=== PATIENT | female | born 1940 | race Caucasian/White ===

== ENCOUNTER 2022-02-08 10:35 | Emergency (ER) | payer OTHER ==
--- NOTE | 2022-02-08 12:32 | RAD REPORT ---
EXAM DESCRIPTION: RAD - Foot Left 3 View - 02/08/2022 12:17 pm CLINICAL HISTORY: PAIN COMPARISON: No comparisons FINDINGS: Joint space narrowing and marginal spurring noted at the first MTP joint. There is a sligh t valgus angulation present. Postsurgical wire is present in the mid shaft first proximal phalanx. Th e IP joints of the foot show mild joint space narrowing. There is no erosive or destructive process a t any of the IP joints. Fracture is evident at the fourth metatarsal shaft- head junction. No distraction or angulation defor mity. There is questionable fracture involving the distal shaft of the fifth metatarsal. There are ch anges in the distal fifth metatarsal that may indicate the remote fracture as well. Correlation is ne eded with localized symptoms to the distal fourth and fifth metatarsals. No measurable distraction or angulation at the fracture site. The second-fifth MTP joints show no suspicious findings. Moderate-sized plantar spur is present. No air or foreign body in the soft tissues. IMPRESSION: Fracture of the distal fourth and fifth metatarsals evident as detailed. Correlation is needed with localizing symptoms.
--- NOTE | 2022-02-08 12:34 | RAD REPORT ---
EXAM DESCRIPTION: RAD - Ankle Left 3 View - 02/08/2022 12:25 pm CLINICAL HISTORY: PAIN COMPARISON: No comparisons FINDINGS: No gross fracture deformity is seen. There is a thin crescent shaped bone focus at the dis eugene tip of the fibula. A very minimal avulsion is possible. There is significant overlying soft tissu e swelling in this region. Anterior soft tissue swelling is also present. No other area of possible f racture seen. Moderate-sized plantar spur present. No joint effusion seen. Slight narrowing of the tibiotalar joint space noted. No air or foreign body in the soft tissues. IMPRESSION: Significant anterior and lateral left ankle soft tissue swelling present. No gross fracture deformity is seen. Small crescent shaped bone density at the tip of the fibula coul d be very minimal avulsion or possibly the sequela of old trauma. Punctate avulsion at the tip of the fibula would not likely alter medical management.
[2022-02-08 13:11] LABS: SARS-COV-2 RT PCR NEGATIVE (NEGATIVE)
--- NOTE | 2022-02-08 13:16 | ER ---
Nurse's Notes [facility] Name: Lilly Cortés Age: 81 yrs Sex: Female : 1940 Arrival Date: 02/08/2022 Time: 10:38 Bed IW2 Private MD: Diagnosis: Nondisplaced fracture of fifth metatarsal bone, left foot;Nondisplaced fracture of fourth metatarsal bone, left foot, initial encounter for closed fracture;Sprain of ankle Presentation: 02/08 11:21 Chief complaint: Patient states: twisted left ankle on stairs yesterday; swelling and jh5 discoloration worsening. Coronavirus screen: Vaccine status: Patient reports receiving the 2nd dose of the covid vaccine. Client denies travel out of the [place] in the last 14 days. Ebola Screen: Patient negative for fever greater than or equal to 101.5 degrees Fahrenheit, and additional compatible Ebola Virus Disease symptoms Patient denies exposure to infectious person. Patient denies travel to an Ebola-affected area in the 21 days before illness onset. Initial Sepsis Screen: Does the patient meet any 2 criteria? No. Patient's initial sepsis screen is negative. Does the patient have a suspected source of infection? No. Patient's initial sepsis screen is negative. Risk Assessment: Do you want to hurt yourself or someone else? Patient reports no desire to harm self or others. 11:21 Method Of Arrival: Wheelchair [facility] 11:21 Acuity: JAY 4 5 Triage Assessment: 11:23 General: Appears in no apparent distress. comfortable, well groomed, well developed, [facility] Behavior is calm, cooperative, appropriate for age. Pain: Complains of pain in left foot. Historical: - Allergies: 11:23 PENICILLINS; [facility] - Immunization history:: Adult Immunizations up to date. - Social history:: Smoking status: Patient denies any tobacco usage or history of. Vital Signs: 11:21 BP 139 / 74; Pulse 100; Resp 16; Temp 98.6; Pulse Ox 94% ; Weight 74.39 kg; Height 5 [facility] ft. 4 in. (162.56 cm); Pain 6/10; 11:21 Body Mass Index 28.15 (74.39 kg, 162.56 cm) [facility] ED Course: 10:38 Patient arrived in ED. mr 10:42 Shani Pablo F[facility]-C [facility] kb 10:42 Liam Valdez DO is Attending Physician. kb 11:23 Triage completed. jh5 11:23 Arm band placed on right wrist. jh5 12:19 Ankle Left 3 View XRAY In Process Unspecified. EDMS 12:19 Foot Left 3 View XRAY In Process Unspecified. EDMS 13:22 No provider procedures requiring assistance completed. Patient did not have IV access ss during this emergency room visit. MEDIUM walking boot to L ankle. Administered Medications: No medications were administered Outcome: 13:16 Discharge ordered by MD. kb 13:34 Patient left the ED. [facility] Signatures: Dispatcher [employer] EDMS Shani Pablo FNP-C FNP-Adriano CherryaChastity Sandy Bardales, RN RN Tamia Duff RN RN [facility]
--- NOTE | 2022-02-08 13:16 | EDPHYS ---
Physician Documentation [facility] Name: Lilly Cortés Age: 81 yrs Sex: Female : 1940 Arrival Date: 02/08/2022 Time: 10:38 Bed IW2 Private MD: ED Physician Liam Valdez HPI: 02/08 20:19 This 81 yrs old Female presents to ER via Wheelchair with complaints of Fall Injury, kb Ankle Injury. 20:19 Details of fall: The patient fell from an upright position. Onset: The symptoms/episode kb began/occurred yesterday. Associated injuries: The patient sustained left lateral ankle, ecchymosis, painful injury, swelling, dorsum of left foot, ecchymosis. Severity of symptoms: At their worst the symptoms were moderate, in the emergency department the symptoms are unchanged. The patient has not experienced similar symptoms in the past. The patient has not recently seen a physician. Pt reports she twisted her ankle when going down a step yesterday. c/o pain to left ankle and foot. Historical: - Allergies: 11:23 PENICILLINS; jh5 - Immunization history:: Adult Immunizations up to date. - Social history:: Smoking status: Patient denies any tobacco usage or history of. ROS: 18:31 Constitutional: Negative for fever, chills, and weight loss. kb 18:31 MS/extremity: Positive for ecchymosis, pain, swelling, tenderness, of the left lateral ankle and left foot. 18:31 All other systems are negative. Exam: 18:31 Constitutional: This is a well developed, well nourished patient who is awake, alert, kb and in no acute distress. Head/Face: Normocephalic, atraumatic. ENT: Moist Mucous membranes Cardiovascular: Regular rate and rhythm with a normal S1 and S2. No gallops, murmurs, or rubs. No pulse deficits. Respiratory: Respirations even and unlabored. No increased work of breathing. Talking in full sentences Skin: Warm, dry with normal turgor. Normal color. Neuro: Awake and alert, GCS 15, oriented to person, place, time, and situation. Moves all extremities. Normal gait. 18:31 Musculoskeletal/extremity: Extremities: grossly normal except: noted in the left lateral ankle and left foot: ecchymosis, pain, swelling, tenderness, ROM: limited active range of motion due to pain, in the left foot and left lateral ankle, Circulation is intact in all extremities. Sensation intact. Weight bearing: can bear weight with assistance only. Vital Signs: 11:21 BP 139 / 74; Pulse 100; Resp 16; Temp 98.6; Pulse Ox 94% ; Weight 74.39 kg; Height 5 jh5 ft. 4 in. (162.56 cm); Pain 6/10; 11:21 Body Mass Index 28.15 (74.39 kg, 162.56 cm) jh5 MDM: 11:16 Patient medically screened. kb 13:13 Data reviewed: vital signs, nurses notes. Data interpreted: Pulse oximetry: on room air kb is 95 %. Interpretation: normal. Counseling: I had a detailed discussion with the patient and/or guardian regarding: the historical points, exam findings, and any diagnostic results supporting the discharge/admit diagnosis, lab results, radiology results, the need for outpatient follow up, a orthopedic surgeon, to return to the emergency department if symptoms worsen or persist or if there are any questions or concerns that arise at home. 02/08 11:17 Order name: COVID-19/FLU A+B; Complete Time: 13:13 kb 02/08 11:17 Order name: Ankle Left 3 View XRAY; Complete Time: 12:35 kb 02/08 11:17 Order name: Foot Left 3 View XRAY; Complete Time: 12:35 kb 02/08 12:36 Order name: Walking boot; Complete Time: 13:09 kb Administered Medications: No medications were administered Disposition: 15:43 Co-signature as Attending Physician, Liam WOLFE was immediately available onsite ms3 in the emergency department for consultation in the care of the patient. Disposition Summary: 02/08/22 13:16 Discharge Ordered Location: Home kb Condition: Stable kb Diagnosis - Nondisplaced fracture of fifth metatarsal bone, left foot kb - Nondisplaced fracture of fourth metatarsal bone, left foot, initial encounter for kb closed fracture - Sprain of ankle kb Followup: kb - With: Emergency Department - When: As needed - Reason: Worsening of condition Followup: kb - With: Private Physician - When: 2 - 3 days - Reason: Recheck today's complaints, Continuance of care, Re-evaluation by your physician Discharge Instructions: - Discharge Summary Sheet kb - Metatarsal Fracture kb - Ankle Sprain, [id number] kb Forms: - Medication Reconciliation Form kb - Thank You Letter kb - Antibiotic Education kb - Prescription Opioid Use kb Signatures: Dispatcher [employer] EDMS Shani Pablo, CINDI-C EDUCATION SPECIALIST-Liam Mohr, DO ms3 Tamia Duff RN RN jh5 Corrections: (The following items were deleted from the chart) 13:07 12:36 Crutches ordered. kb ss
[2022-02-08 13:41] VITALS: BP 139/74; TEMP 98.6; O2SAT 94
== END 2022-02-08 13:34 | disposition home or self-care (01) ==
LOC: ER 10:35
DX: S92.355A Nondisplaced fracture of fifth metatarsal bone, left foot, initial encounter for closed fracture (principal); S92.345A Nondisplaced fracture of fourth metatarsal bone, left foot, initial encounter for closed fracture; S93.402A Sprain of unspecified ligament of left ankle, initial encounter; Z88.0 Allergy status to penicillin
CPT/HCPCS: 0240U; 73630; 73610; 99283